=== PATIENT | male | born 1995 | race Caucasian/White ===

== ENCOUNTER 2017-03-03 02:56 | Emergency (ER) | payer BC, OTHER ==
[2017-03-03 03:06] VITALS: TEMP 97.5
[2017-03-03] MEDS ORDERED: ONDANSETRON 4 MG/2 ML VIAL ONE (03:14)
[2017-03-03] MEDS ORDERED: ONDANSETRON 4 MG/2 ML VIAL IVP ONE (03:17)
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
[2017-03-03 03:59] LABS: PLATELET COUNT 327 10^3/uL (150-400)
[2017-03-03 04:06] LABS: INR 1.06 (0.83-1.16)
[2017-03-03 04:16] VITALS: RESP 20
[2017-03-03] MEDS ORDERED: IOPAMIDOL (ISOVUE-300) 100 ML BTL ONE (04:20)
[2017-03-03] MEDS ORDERED: levETIRAcetam 750 MG in NS 100 ML IV ONE (04:48)
[2017-03-03] MEDS ORDERED: NS 1,000 ML IV SCH (05:00)
[2017-03-03 05:49] VITALS: O2SAT 98
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
[2017-03-03 06:40] VITALS: BP 128/64; PULSE 99
== END 2017-03-03 06:40 | disposition short-term general hospital (02) ==
PROC: 0HQ1XZZ Repair Face Skin, External Approach (ICD-10-PCS; principal; 2017-03-03)
DX: S06.6X9A Traumatic subarachnoid hemorrhage with loss of consciousness of unspecified duration, initial encounter (principal); S01.81XA Laceration without foreign body of other part of head, initial encounter; V18.4XXA Pedal cycle driver injured in noncollision transport accident in traffic accident, initial encounter; Y92.410 Unspecified street and highway as the place of occurrence of the external cause; Y99.8 Other external cause status; Y93.55 Activity, bike riding
CPT/HCPCS: 96365; G0480; J1953; J2405; Q9967